=== PATIENT | male | born 1970 | race Caucasian/White ===

== ENCOUNTER 2020-09-02 10:56 | Inpatient (IN) | payer OTHER ==
[2020-09-02 11:42] LABS: Absolute Lymphocytes (CBC) 4.6 K/uL (0.7-4.9); Hematocrit 45.8 % (39.6-49.0); Lymphocytes % 35.2 % (15.3-44.8); MPV 7.5 fL (7.6-11.3); RBC Red Blood Cell Count 4.77 M/uL (4.33-5.43)
[2020-09-02] MEDS ORDERED: ASPIRIN 81 MG CHEWABLE TABLET ONE (11:42)
[2020-09-02] MEDS ORDERED: ONDANSETRON 4 MG/2 ML VIAL ONE (11:42)
[2020-09-02] MEDS ORDERED: MORPHINE 4 MG/ML SYR ONE ×2 (11:43→11:59)
[2020-09-02 11:44] LABS: Protime INR 1.09
--- NOTE | 2020-09-02 11:45 | ER ---
Nurse's Notes [facility] Name: Chaka Gonzalez Age: 50 yrs Sex: Male : 1970 Arrival Date: 09/02/2020 Time: 10:58 Bed 25 Private MD: Diagnosis: ST elevation (STEMI) myocardial infarction of inferior wall Presentation: 09/02 11:17 Chief complaint: Patient states: substernal chest pain that started about hour ago, em reports N/V and radiates into left arm and wrist. Coronavirus screen: Client denies travel out of the [place] in the last 14 days. Ebola Screen: Patient negative for fever greater than or equal to 101.5 degrees Fahrenheit, and additional compatible Ebola Virus Disease symptoms Patient denies exposure to infectious person. Patient denies travel to an Ebola-affected area in the 21 days before illness onset. No symptoms or risks identified at this time. Initial Sepsis Screen: Does the patient meet any 2 criteria? No. Patient's initial sepsis screen is negative. Does the patient have a suspected source of infection? No. Patient's initial sepsis screen is negative. Risk Assessment: Do you want to hurt yourself or someone else? Patient reports no desire to harm self or others. Onset of symptoms was September 02, 2020. 11:17 Method Of Arrival: Wheelchair em 11:17 Acuity: HERMINIA 2 em Historical: - Allergies: 11:18 PENICILLINS; em - PMHx: 11:18 Asthma; em - PSHx: 11:18 None; em - Immunization history:: Adult Immunizations up to date. - Social history:: Smoking status: Patient denies any tobacco usage or history of. Screenin:20 Abuse screen: Denies threats or abuse. Denies injuries from another. Nutritional ca1 screening: No deficits noted. Tuberculosis screening: No symptoms or risk factors identified. Fall Risk IV access (20 points). Assessment: 11:20 General: Appears in no apparent distress. uncomfortable, Behavior is calm, cooperative, ca1 appropriate for age. Pain: Complains of pain in mid-sternal area Pain radiates to right clavicle, left clavicle, anterior aspect of right upper chest and anterior aspect of left upper chest Pain currently is 9 out of 10 on a pain scale. Quality of pain is described as pressure, sharp, Pain began 1 hour ago. Is continuous. Neuro: Level of Consciousness is awake, alert, obeys commands, Oriented to person, place, time, situation. Neuro: Reports dizziness. Cardiovascular: Reports diaphoresis, lightheadedness, shortness of breath. Cardiovascular: Heart tones S1 S2 present Capillary refill < 3 seconds Rhythm is sinus rhythm with occasional PVC. Acute STEMI per EKG. Respiratory: Airway is patent Respiratory effort is even, unlabored, Respiratory pattern is regular, symmetrical, Breath sounds are clear bilaterally. GI: Abdomen is round non-distended, Bowel sounds present X 4 quads. Abd is soft and non tender X 4 quads. : No signs and/or symptoms were reported regarding the genitourinary system. EENT: No signs and/or symptoms were reported regarding the EENT system. Derm: Skin is intact, is healthy with good turgor, Skin is pink, warm \T\ dry. Musculoskeletal: Circulation, motion, and sensation intact. Capillary refill < 3 seconds. 11:40 Reassessment: Patient appears in no apparent distress at this time. Patient and/or ca1 family updated on plan of care and expected duration. Pain level reassessed. Patient is alert, oriented x 3, equal unlabored respirations, skin warm/dry/pink. 11:44 Reassessment: Pt wheeled to Receiving Checker with nurses. ca1 Vital Signs: 11:17 BP 112 / 86; Pulse 89; Resp 20; Pulse Ox 100% on R/A; Weight 102 kg; Height 6 ft. 0 in. em (182.88 cm); Pain 10/10; 11:40 BP 117 / 88; Pulse 83; Resp 18 S; Pulse Ox 99% on 2 lpm NC; ca1 11:17 Body Mass Index 30.50 (102.00 kg, 182.88 cm) em ED Course: 10:58 Patient arrived in ED. as 11:13 Michael Sanchez PA is PHCP. chaka 11:13 Chris Alcaraz MD is Attending Physician. m 11:15 No provider procedures requiring assistance completed. Initial lab(s) drawn, by me, ca1 sent to lab. Inserted saline lock: 20 gauge in left antecubital area, using aseptic technique. Blood collected. Oxygen administration via nasal cannula \T\ 2L/min Response to oxygen therapy: symptoms improved. 11:18 Triage completed. em 11:18 Arm band placed on. em 11:20 Patient has correct armband on for positive identification. Placed in gown. Bed in low ca1 position. Call light in reach. Side rails up X2. groundwater monitoring technician on. Pulse ox on. NIBP on. Warm blanket given. 11:20 Inserted saline lock: 20 gauge in right antecubital area, using aseptic technique. ca1 11:29 Sulema Lema RN is Primary Nurse. ca1 11:40 Patient admitted, IV remains in place. ca1 11:43 Henry Adams MD is Hospitalizing Provider. aa5 Administered Medications: 11:22 Drug: Aspirin Chewable Tablet 324 mg Route: PO; aa5 11:40 Follow up: Response: No adverse reaction ca1 11:25 Drug: morphine 4 mg Route: IVP; Site: left antecubital; aa5 11:42 Follow up: Response: No adverse reaction; Pain is unchanged, physician notified; RASS: ca1 Alert and Calm (0) 11:25 Drug: Zofran (Ondansetron) 4 mg Route: IVP; Site: left antecubital; aa5 11:42 Follow up: Response: No adverse reaction; Nausea is decreased ca1 11:30 CANCELLED (Physician Discretion): Heparin ([place]-Bolus No thrombolytic) - HEParin 60 ca1 units/kg IVP once; Max 5000 units 11:38 CANCELLED (Duplicate Order): morphine 4 mg IVP once; RASS on ADMIN: Combtv4, Very aa5 Agttd3, Agttd2, Rstlss1, AlertClm0, Drwsy-1, Lt Sdtn-2, Mod Sdtn-3, Dp Sdtn-4, UnArsble-5 11:42 Drug: morphine 4 mg Route: IVP; Site: left antecubital; aa5 12:51 Follow up: Response: No adverse reaction; No adverse reaction. Pt transferred to CathLabca1 Outcome: 11:40 Admitted to Receiving Checker accompanied by nurse, via stretcher, with oxygen, on monitor, with ca1 chart, Report called to YASMIN Mancuso 11:40 Condition: stable 11:40 Instructed on the need for admit. 11:44 Decision to Hospitalize by Provider. aa5 11:45 Patient left the ED. aa5 Signatures: Michael Sanchez PA PA jmm Munoz, Carlos, RN RN em Venus Pitts Audri RN RN aa5 AcSulema ayers RN RN ca1 Corrections: (The following items were deleted from the chart) 11:17 Acuity: HERMINIA 3 em em 11:40 11:20 Cardiovascular: Heart tones S1 S2 present Capillary refill < 3 seconds Rhythm is ca1 ca1
[2020-09-02] MEDS ORDERED: HEPA 1000U/500MLS 2,000 UNIT/1,000 ML BAG IV ONE (11:46)
[2020-09-02] MEDS ORDERED: MIDAZOLAM HCL 2 MG/2 ML INJ ONE (11:47)
[2020-09-02] MEDS ORDERED: FENTANYL CITR 100 MCG/2 ML ONE (11:47)
[2020-09-02] MEDS ORDERED: NITROGLYCERIN 100 MCG/ML SYR (for cath lab use only) IV ONE (11:48)
[2020-09-02] MEDS ORDERED: NA CHLORIDE 0.9% 500 ML ONE (11:48)
[2020-09-02] MEDS ORDERED: ATROPINE SULF 1 MG/10 ML SYR IV ONE (11:48)
[2020-09-02] MEDS ORDERED: NITROGLYCERIN/D5W 25 MG/250 ML BTL IV ONE (11:48)
[2020-09-02] MEDS ORDERED: NA CHLORIDE 0.9% 50 ML ONE (11:48)
[2020-09-02 11:58] LABS: ALT/SGPT 59 U/L (12-78); AST/SGOT 23 U/L (15-37); Albumin 3.9 g/dL (3.4-5.0); Alkaline Phosphatase 132 U/L (45-117); BUN Blood Urea Nitrogen 11 mg/dL (7-18); Bicarbonate 25 mmol/L (21-32); Bilirubin Direct < 0.1 mg/dL (0-0.2); Bilirubin Total 0.4 mg/dL (0.2-1.0); Glucose Level 316 mg/dL (74-106); Magnesium 2.1 mg/dL (1.8-2.4); NT PRO-BNP 37 pg/mL (<125); Potassium 4.4 mmol/L (3.5-5.1); Sodium Level 137 mmol/L (136-145); Troponin (Emerg Dept Use Only) < 0.02 ng/mL (0.0-0.045)
[2020-09-02] MEDS ORDERED: NITROPRUSSIDE 50 MG VIAL IV ONE (12:20)
[2020-09-02] MEDS ORDERED: D5W 250 ML IV ONE (12:21)
[2020-09-02] MEDS ORDERED: ASPIRIN 325 MG TAB ONE (12:29)
[2020-09-02] MEDS ORDERED: PRASUGREL (EFFIENT) 10 MG TAB ONE (12:29)
[2020-09-02 14:54] VITALS: BMI 4374.2
[2020-09-02] MEDS ORDERED: HEPA 1000U/500MLS 1,000 UNIT/500 ML BAG IV ONE (14:55)
[2020-09-02] MEDS: NA CHLORIDE 0.9% 1,000 ML IV SCH (15:00)
[2020-09-02] MEDS ORDERED: ACETAMINOPHEN 325 MG TABLET PO PRN (15:02)
[2020-09-02] MEDS ORDERED: MORPHINE 4 MG/ML SYR IV PRN (15:02)
[2020-09-02] MEDS ORDERED: ONDANSETRON 4 MG/2 ML VIAL IV PRN (15:03)
[2020-09-02] MEDS ORDERED: ZOLPIDEM TARTRATE 10 MG TABLET PO PRN (15:03)
[2020-09-02] MEDS ORDERED: HEPARIN/D5W 25,000 UNIT/500 ML BAG IV PRN (16:00)
[2020-09-02] MEDS ORDERED: HEPARIN/D5W 25,000 UNIT/500 ML BAG IV SCH (16:00)
[2020-09-02] MEDS ORDERED: PNEUMOCOCCAL VACCINE 0.5 ML IMVAC ONE (17:00)
[2020-09-02] MEDS ORDERED: METOPROLOL TAR 25 MG TAB ONE (20:39)
[2020-09-02] MEDS ORDERED: ATORVASTATIN 80 MG TAB PO SCH (21:00)
[2020-09-02] MEDS: METOPROLOL TAR 25 MG TAB PO SCH (21:07)
[2020-09-02 23:19] VITALS: O2SAT 94
[2020-09-03] MEDS: NA CHLORIDE 0.9% 1,000 ML IV SCH (05:18)
[2020-09-03 06:18] LABS: Absolute Lymphocytes (CBC) 2.6 K/uL (0.7-4.9); Basophils % 0.7 % (0-1.3); Lymphocytes % 21.7 % (15.3-44.8); MPV 7.4 fL (7.6-11.3); RBC Red Blood Cell Count 4.28 M/uL (4.33-5.43)
[2020-09-03 06:38] LABS: BUN Blood Urea Nitrogen 11 mg/dL (7-18); Bicarbonate 27 mmol/L (21-32); Glucose Level 230 mg/dL (74-106); Potassium 4.5 mmol/L (3.5-5.1); Sodium Level 138 mmol/L (136-145)
[2020-09-03] MEDS ORDERED: HEPARIN 5000 UNIT/ML 1 ML VIAL ONE (07:23)
--- NOTE | 2020-09-03 07:38 | EKG ---
Test Date: 2020-09-02 Test Time: 11:17:44 School Business Manager: MONIQUE MEASUREMENT RESULTS: Intervals: Rate: 82 MT: 178 QRSD: 98 QT: 344 QTc: 401 [place]: P: 66 MT: 178 QRS: 90 T: 79 INTERPRETIVE STATEMENTS: Sinus rhythm with occasional premature ventricular complexes Rightward axis ST elevation, consider inferolateral injury or acute infarct ACUTE [place] / STEMI Consider right ventricular involvement in acute inferior infarct Abnormal ECG No previous ECG available for comparison Electronically Signed On 09-03-20 07:35:23 CDT by Henry Adams
[2020-09-03] MEDS ORDERED: ASPIRIN 81 MG CHEWABLE TABLET ONE (08:49)
[2020-09-03] MEDS ORDERED: METOPROLOL TAR 25 MG TAB ONE (08:49)
[2020-09-03] MEDS ORDERED: CLOPIDOGREL 75 MG TABLET ONE (08:49)
[2020-09-03] MEDS: METOPROLOL TAR 25 MG TAB PO SCH (09:00)
[2020-09-03] MEDS ORDERED: CLOPIDOGREL 75 MG TABLET PO SCH (09:00)
[2020-09-03] MEDS ORDERED: ASPIRIN 81 MG CHEWABLE TABLET PO SCH (09:00)
[2020-09-03] MEDS ORDERED: HEPARIN/D5W 25,000 UNIT/500 ML BAG IV ONE (09:57)
--- NOTE | 2020-09-03 11:47 | EDPHYS ---
Physician Documentation [facility] Name: Chaka Gonzalez Age: 50 yrs Sex: Male : 1970 Arrival Date: 09/02/2020 Time: 10:58 Bed 25 Private MD: ED Physician Chris Alcaraz HPI: 09/02 11:14 This 50 yrs old Male presents to ER via Wheelchair with complaints of Chest [facility] Pain. 11:14 The patient or guardian reports chest pain that is located primarily in the substernal [facility] area. Onset: acutely, 1 hour(s) ago. The pain radiates to the left arm. Associated signs and symptoms: Pertinent negatives: abdominal pain, shortness of breath, vomiting. The chest pain is described as aching, a pressure. Duration: The patient or guardian reports a single episode, that is still ongoing. Modifying factors: The symptoms are alleviated by nothing. the symptoms are aggravated by nothing. Historical: - Allergies: 11:18 PENICILLINS; em - PMHx: 11:18 Asthma; em - PSHx: 11:18 None; em - Immunization history:: Adult Immunizations up to date. - Social history:: Smoking status: Patient denies any tobacco usage or history of. ROS: 11:14 Constitutional: Negative for fever, chills, and weight loss. jmm 11:14 Cardiovascular: Positive for chest pain. 11:14 All other systems are negative. Exam: 11:14 Constitutional: This is a well developed, well nourished patient who is awake, alert, jmm and in no acute distress. Head/Face: atraumatic. Eyes: EOMI, no conjunctival erythema appreciated ENT: Moist Mucus Membranes Neck: Trachea midline, Supple Chest/axilla: Normal chest wall appearance and motion. Cardiovascular: Regular rate and rhythm. No edema appreciated Respiratory: Normal respirations, no respiratory distress appreciated Abdomen/GI: Non distended, soft Back: Normal ROM Skin: General appearance color normal MS/ Extremity: Moves all extremities, no obvious deformities appreciated, no edema noted to the lower extremities Neuro: Awake and alert, normal gait Psych: Behavior is normal, Mood is normal, Patient is cooperative and pleasant Vital Signs: 11:17 BP 112 / 86; Pulse 89; Resp 20; Pulse Ox 100% on R/A; Weight 102 kg; Height 6 ft. 0 in. em (182.88 cm); Pain 10/10; 11:40 BP 117 / 88; Pulse 83; Resp 18 S; Pulse Ox 99% on 2 lpm NC; ca1 11:17 Body Mass Index 30.50 (102.00 kg, 182.88 cm) em MDM: 11:15 The patient was given aspirin in the Emergency Department. Data reviewed: vital signs, [facility] nurses notes. 11:15 ED course: Patient discussed with Dr. Adams. Will take patient to brick and blocker aid labor for [facility] further evaluation. . 11:21 Patient medically screened. [facility] 09/02 11:14 Order name: Basic Metabolic Panel [facility] 09/02 11:14 Order name: CBC with Diff [facility] 09/02 11:14 Order name: LFT's [facility] 09/02 11:14 Order name: Magnesium [facility] 09/02 11:14 Order name: NT PRO-BNP [facility] 09/02 11:14 Order name: PT-INR [facility] 09/02 11:14 Order name: Troponin (emerg Dept Use Only) [facility] 09/02 11:14 Order name: EKG; Complete Time: 11:15 [facility] 09/02 11:14 Order name: Cardiac monitoring; Complete Time: 11:30 [facility] 09/02 11:14 Order name: EKG - Nurse/Tech; Complete Time: 11:30 [facility] 09/02 11:14 Order name: IV Saline Lock; Complete Time: 11:30 [facility] 09/02 11:14 Order name: Labs collected and sent; Complete Time: 11:30 [facility] 09/02 11:14 Order name: O2 Per Protocol; Complete Time: 11:30 [facility] 09/02 11:14 Order name: O2 Sat Monitoring; Complete Time: 11:31 [facility] Administered Medications: 11:22 Drug: Aspirin Chewable Tablet 324 mg Route: PO; aa5 11:40 Follow up: Response: No adverse reaction ca1 11:25 Drug: morphine 4 mg Route: IVP; Site: left antecubital; aa5 11:42 Follow up: Response: No adverse reaction; Pain is unchanged, physician notified; RASS: ca1 Alert and Calm (0) 11:25 Drug: Zofran (Ondansetron) 4 mg Route: IVP; Site: left antecubital; aa5 11:42 Follow up: Response: No adverse reaction; Nausea is decreased ca1 11:30 CANCELLED (Physician Discretion): Heparin ([place]-Bolus No thrombolytic) - HEParin 60 ca1 units/kg IVP once; Max 5000 units 11:38 CANCELLED (Duplicate Order): morphine 4 mg IVP once; RASS on ADMIN: Combtv4, Very aa5 Agttd3, Agttd2, Rstlss1, AlertClm0, Drwsy-1, Lt Sdtn-2, Mod Sdtn-3, Dp Sdtn-4, UnArsble-5 11:42 Drug: morphine 4 mg Route: IVP; Site: left antecubital; aa5 12:51 Follow up: Response: No adverse reaction; No adverse reaction[facility]: 09[facility]02/20 11:44 Hospitalization ordered by Henry Adams for Inpatient Admission. Preliminary diagnosis is ST elevation (STEMI) myocardial infarction of inferior wall. - Bed requested for Automatic Spreader Operator. - Status is Inpatient Admission. aa5 - Condition is Stable. Addendum: 09/04/2020 06:30 Co-signature as Attending Physician, Chris Alcaraz MD I agree with the assessment and t w4 plan of care. Signatures: Dispatcher [employer] EDMS Michael Sanchez PA PA [facility] Carlos Meza, Andressa Chery RN, RN RN aa5 Chris Alcaraz MD MD tw4 Sulema Lema RN ca1 Corrections: (The following items were deleted from the chart) 09/02 11:30 11:23 Heparin ([place]-Bolus No thrombolytic) - HEParin 60 units/kg IVP once; Max 5000 units ca1 ordered. [facility] 11:38 11:36 morphine 4 mg IVP once; RASS on ADMIN: Combtv4, Very Agttd3, Agttd2, Rstlss1, aa5 AlertClm0, Drwsy-1, Lt Sdtn-2, Mod Sdtn-3, Dp Sdtn-4, UnArsble-5 ordered. [facility] 11:45 11:44 Hospitalization Ordered by Henry Adams MD for Inpatient Admission. Preliminary aa5 diagnosis is ST elevation (STEMI) myocardial infarction of inferior wall. Bed requested for Automatic Spreader Operator. Status is Inpatient Admission. Condition is Stable. aa5
[2020-09-03 12:25] VITALS: TEMP 98.3
--- NOTE | 2020-09-03 12:53 | EKG ---
Test Date: 2020-09-02 Test Time: 12:02:08 Drapery Estimator: MEASUREMENT RESULTS: Intervals: Rate: 85 [place]: 178 QRSD: 84 QT: 352 QTc: 418 [place]: P: 70 [place]: 178 QRS: 95 T: 84 INTERPRETIVE STATEMENTS: Normal sinus rhythm Rightward axis Inferior-posterior infarct, possibly acute Lateral injury pattern ACUTE [place] Consider right ventricular involvement in acute inferior infarct Abnormal ECG Compared to ECG 09/02/2020 11:17:44 Ventricular premature complex(es) no longer present ST (T wave) deviation no longer present Myocardial infarct finding still present Electronically Signed On 09-03-20 12:52:19 CDT by Henry Adams
[2020-09-03 13:06] VITALS: BP 102/74
--- NOTE | 2020-09-06 11:24 | HP ---
Date of Admission: 09/02/2020 History Of Present Illness: Mr. Gonzalez is a 50-year-old white male with only history of hypertension , family history of heart disease, tobacco use, was brought to the emergency room on 09/02/2020 with an acute inferior PR. I saw the patient on 09/02/2020. We took him to the blood bank laboratory technologist emergently for a n emergency heart catheterization. The patient had chest pain for approximately 6 hours. He receive d aspirin before I took him to the blood bank laboratory technologist. Past Medical History: Includes hypertension. Allergies: NONE. Review of Systems: Negative. Social History: Positive for tobacco use. Family History: Positive for heart disease. Physical Examination: Vital Signs: Stable. He was afebrile. He was in upsmjrwl-[id number] pain, 8/10 otherwise. HEENT: Negative. Neck: Supple with no bruit. Chest: Clear. Cardiac: Revealed a regular rhythm and rate. No mitral regurgitation murmur. No gallops. No rubs. Abdomen: Benign. Extremities: Revealed no clubbing, cyanosis, or edema. Diagnostic Data: Showed an acute inferior PR on EKG. Chest x-ray was negative. Troponin was still pending. Impression And Plan: Acute inferior myocardial infarction, the patient with history of hypertension, family history of heart disease, positive tobacco use. We will take him to the blood bank laboratory technologist emergently. He understands the risks and the benefits of the procedure and he agreed to proceed. BHAVYA/ANIA Voice ID: [id number]
--- NOTE | 2020-09-06 17:14 | OP ---
Date of Procedure: 09/02/2020 Surgeon: Henry Adams MD Printing Machinist: Sarath Camp. The patient will remain in the hospital at least overnight and placed on a heparin drip because of re sidual thrombus and the RCA. His STs remained slightly elevated without any chest pain. The chest p ain resolved. We will watch him overnight, send him home after 24 hours of heparin. Procedure: Left heart catheterization, emergency with angioplasty and stent of the mid RCA. Indication: Acute inferior ID. Procedure In Detail: Mr. Gonzalez is a 50-year-old with history of hypertension, came in with acute in ferior ID, taken to the tin can laborer emergently, prepped and draped in routine sterile fashion. Given V ersed and fentanyl for sedation. A 6-[place] sheath introduced in the right common femoral artery suc cessfully using Seldinger technique and 10 cc of xylocaine. Angiography there was normal. Tisseel w as used to close the case. A JL4 and JR4 catheter were used to do the diagnostic catheterization. H e had a normal left main circumflex and LAD. The RCA was completely occluded at mid level. We decid ed to intervene emergently. A JR4 guide with 6-[place]izen [place] with side hole was used to cannulate the right coronary. A [place] wire was used to close across the lesion successfully. Multiple dilatation was done with a 2.5 x 15 emerge balloon. Following that, angiography showed a patent RCA with stenosis i n the RCA with possible thrombus. A 3.5 x 16 Synergy stent was placed with 0% residual. The patient was given IV Nipride during the procedure. He received Angiomax. He received aspirin. He received 60 of Effient. There were no complications. Blood Loss: 5 mL. Anesthesia: Total conscious sedation was 60 minutes. NB/MODL Voice ID: [id number] Report ID: [id number]
--- NOTE | 2020-09-06 23:15 | DS ---
Date of Discharge: 09/03/2020 Admission Diagnosis: Acute inferior myocardial infarction. Discharge Diagnoses: 1.Acute inferior myocardial infarction, status post emergency right coronary artery stent that was s uccessful. 2.Hypertension. 3.Family history of heart disease. 4.Positive tobacco use. Discharge Medications: Aspirin, Plavix, Lipitor, and Toprol. Discharge Instructions: The patient is to stay off work for at least a week, come see me in the offi ce in 2 weeks. Take his prescribed medication. The patient is to be on a low-fat, low-cholesterol d iet. Activity should not include heavy lifting over 20 pounds. Hospital Course: Mr. Gonzalez is a 50-year-old male with family history of heart disease, positive tob acco use, hypertension, came in with an acute inferior ME, underwent emergency RCA angioplasty and st ent successfully. He had some thrombus. We kept him on heparin 24 hours after the procedure. Overn ight, his ST segments came down. He has no chest pain. His groin site appeared to be intact. We wi ll send him home today with the above instructions. I will see him in the office in the next 2 weeks . BHAVYA/ANIA Voice ID: [id number] Report ID: [id number]
== END 2020-09-03 14:10 | disposition home or self-care (01) | DRG 247 ==
LOC: ER 10:56 → CCL 13:48 → ERHOLD 14:49
PROC: 027034Z Dilation of Coronary Artery, One Artery with Drug-eluting Intraluminal Device, Percutaneous Approach (ICD-10-PCS; principal; 2020-09-02)
PROC: 4A023N7 Measurement of Cardiac Sampling and Pressure, Left Heart, Percutaneous Approach (ICD-10-PCS; 2020-09-02)
PROC: B2111ZZ Fluoroscopy of Multiple Coronary Arteries using Low Osmolar Contrast (ICD-10-PCS; 2020-09-02)
DX: I21.19 ST elevation (STEMI) myocardial infarction involving other coronary artery of inferior wall (principal); I10 Essential (primary) hypertension; Z88.0 Allergy status to penicillin; Z82.49 Family history of ischemic heart disease and other diseases of the circulatory system; Z20.822 Contact with and (suspected) exposure to COVID-19
CPT/HCPCS: 36415; 80048; 80076; 83735; 83880; 84484; 85025; 85347; 85610; 85730; 92928; 93005; 93454; 96374; 96375; 99285; C1725; C1893; J0583; J1644; J2250; J2405; J3010; J7040; J7060; U0003